=== PATIENT | female | born 1975 | race Caucasian/White ===

== ENCOUNTER → 2016-06-04 | Outpatient (CLI) | payer OTHER ==
[2013-10-28 19:50] VITALS: BP 126/57
[~2016-06-04] MED LIST: ALPR0.5T PO; AMOX1TAB24 PO; FLUO20TA11 PO; HYDR-2672 PO
--- NOTE | 2016-06-04 12:40 | RAD ---
PROCEDURE MR of the left shoulder MR of the left shoulder HISTORY Posterosuperior left shoulder pain for 3 months after a fall. COMPARISON None TECHNIQUE Standard noncontrast sequences are obtained. FINDINGS Trace fluid in the acromioclavicular joint. Mild bone marrow edema at the outer clavicle and the anterior acromion. Findings are subtle, but could indicate sequela of macro trauma or repetitive microtrauma if that correlates with patient presentation. No joint separation. No acute coracoclavicular ligament disruption. No significant degenerative change or osteophytes. Mild signal identified within the rotator cuff compatible with tendinosis as well as mild tendon thickening. No measurable fluid gap or rupture, however. Subscapularis tendon is intact. No significant subdeltoid bursal fluid. Small glenohumeral joint effusion. Small defect undercutting the superior through posterior labrum compatible with a detached tear. Although less well seen without arthrographic technique, there is some increased signal at the anteroinferior labrum on the axial images. On the coronal images there is suggestion of a small defect at the base of the labrum at the anteroinferior quadrant. No Hill-Sachs fracture deformity. Articular cartilage is intact. The biceps tendon is intact. No bone lesion or acute fracture. No acute soft tissue injury. IMPRESSION 1. Tear of the superior through posterior labrum. 2. Although less well seen, possible tear of the anteroinferior labrum. 3. Rotator cuff tendinosis without evidence of a tear. 4. Mild reactive type edema at the acromioclavicular joint. Consider traumatic injury or repetitive stress injury depending on clinical correlation. No joint separation. Electronically signed by: John Hodges MD (Jun 04, 2016 12:39:20)
== END | disposition home or self-care (01) ==
LOC: MRI 10:44
PROVIDERS: ATTEND Family Medicine
DX: S46.912A Strain of unspecified muscle, fascia and tendon at shoulder and upper arm level, left arm, initial encounter (principal); W19.XXXA Unspecified fall, initial encounter; Y93.89 Activity, other specified; Y92.89 Other specified places as the place of occurrence of the external cause; Y99.8 Other external cause status
CPT/HCPCS: 73221

== ENCOUNTER → 2016-06-30 | Outpatient (CLI) | payer OTHER ==
[2013-10-28 19:50] VITALS: BP 126/57
[~2016-06-30] MED LIST changes: +GADOBUTROL 7.5 MMOL/7.5 ML VIAL INT ART ONE; +IOHEXOL 300 MG/ML 50 ML VIAL. INT ART ONE; +LIDOCAINE 1% Multi-Dose 20 ML VIAL. ID ONE
--- NOTE | 2016-06-30 14:59 | KCIC ---
PROCEDURE Left shoulder arthrogram HISTORY Left shoulder pain, limited range of motion TECHNIQUE Patient was informed of the risks to include pain, infection, bleeding, allergic reaction, nerve or blood vessel injury. All questions were answered. Patient signed a written consent form for a left shoulder arthrogram. Patient was placed in a supine position on the fluoroscopy table. External skin site of the left shoulder was prepped and draped in the usual sterile fashion. Betadine was utilized for cleansing solution. 1 percent lidocaine was utilized for local anesthesia to the depth of the left humeral head. 22 gauge spinal needle was advanced to the margin of left humeral head. After negative aspiration, a solution containing 5 cc lidocaine, 5 cc Omnipaque 300, 0.1 cc Gadavist, 10 cc normal saline were injected, total of 15 cc of the solution injected at which point there was firm resistance to further injection. Needle was removed. There was hemostasis at the puncture site. Bandage was applied. There was no immediate complication. Patient was transferred to MRI suite for MRI evaluation of the left shoulder. Fluoroscopy time: 23 seconds, 1 fluoroscopic image. FINDINGS No full-thickness tear was identified of the left shoulder. IMPRESSION Technically successful left shoulder injection prior to MRI without immediate complication. Electronically signed by: Darnell Gomez MD (Jun 30, 2016 14:57:02)
--- NOTE | 2016-07-01 09:00 | KCIC ---
PROCEDURE MR arthrogram of the left shoulder HISTORY Left acromioclavicular joint sprain. Prior injuries. TECHNIQUE Intra-articular contrast injected by a different radiologist, who will dictate that procedure separately. COMPARISON None FINDINGS The acromioclavicular joint is intact with mild hypertrophy. No joint separation or coracoclavicular ligament disruption. The rotator cuff demonstrates mild thickening and signal compatible with tendinosis. There is some signal within the subscapularis tendon which is thought to be due to the injection procedure, without high-grade tear. Trace fluid in the subdeltoid bursa without contrast accumulation. Tear of the posterior through superior labrum. No acute articular cartilage defect or advanced chondromalacia. The biceps tendon is intact. No bone lesion or acute fracture. No acute soft tissue injury. IMPRESSION 1. Rotator cuff tendinosis without a measurable tear. 2. Posterior through superior labral tear. Electronically signed by: John Hodges MD (Jul 01, 2016 08:58:18)
== END | disposition home or self-care (01) ==
LOC: KCIC 13:24
PROVIDERS: ATTEND Physical Medicine & Rehabilitation Pain Medicine
DX: S43.422A Sprain of left rotator cuff capsule, initial encounter (principal); M25.512 Pain in left shoulder
CPT/HCPCS: 73040; 73222; Q9967; A9585